=== PATIENT | male | born 1935 | race Native Hawaiian/Other Pacific Islander ===

== ENCOUNTER 2021-05-19 12:54 | Emergency (ER) | payer OTHER ==
[~2021-05-19] VITALS: Ht 170.2 cm; Wt 65.8 kg
[2021-05-19 13:00] VITALS: TEMP 98.7
[2021-05-19 13:43] VITALS: BP 120/70
== END 2021-05-19 13:45 | disposition home or self-care (01) ==
LOC: ED 12:54
DX: L97.528 Non-pressure chronic ulcer of other part of left foot with other specified severity (principal); L97.518 Non-pressure chronic ulcer of other part of right foot with other specified severity
CPT/HCPCS: 99282

== ENCOUNTER 2022-07-26 09:11 | Outpatient (CLI) | payer OTHER | END 2022-07-26 19:13 | disposition home or self-care (01) | LOC: RAD 09:11 | PROVIDERS: ATTEND Family Medicine | DX: R05.9 Cough, unspecified (principal) ==